=== PATIENT | male | born 1975 | race Caucasian/White ===

== ENCOUNTER 2022-04-23 17:52 | Observation (INO) | payer OTHER, SELFPAY ==
[2022-04-23] VITALS (23 sets, daily range): BP systolic 95–171; BP diastolic 59–104; PULSE 47–104; RESP 11–30; TEMP 36.4; O2SAT 92–100; BMI 36.6
--- NOTE | ~2022-04-23 | XR_ITS ---
XR chest 2V 04/23/2022 18:32 Indication: Left-sided chest pain Procedure: 2 view chest Comparison: No prior studies for comparison. Findings: Heart size normal. No focal air space disease, pulmonary edema, pleural effusion or suspect ed pneumothorax. There are multiple bilateral calcified nodules, consistent with chronic granulomatou s disease. Impression: 1: No acute cardiopulmonary disease. Reviewed, dictated and finalized at location A. Impression: 1: No acute cardiopulmonary disease.
--- NOTE | 2022-04-23 17:54 | ECG_ITS ---
Measurements Intervals Myton Rate: 92 P: 39 MO: 164 QRS: 54 QRSD: 111 T: 8 QT: 334 QTc: 415 Interpretive Statements SINUS RHYTHM WITH SINUS ARRHYTHMIA INTRAVENTRICULAR CONDUCTION DELAY DELAYED PRECORDIAL R/S TRANSITION BORDERLINE ST-T WAVE ABNORMALITY- INFERIOR LEADS BASELINE ARTIFACT- I, II, III, AVR BORDERLINE ECG NO PREVIOUS ECG AVAILABLE FOR COMPARISON Electronically Signed On 04-24-2022 8:01:27 CDT by Chauncey Green D.O.
[2022-04-23 18:09] LABS: Basophils Absolute Auto 0.1 K/mm3 (0.0-0.1); Basophils Percent Auto 1.2 % (0.2-1.2); Eosinophils Absolute Auto 0.3 K/mm3 (0-0.3); Eosinophils Percent Auto 2.9 % (0-4.4); Hematocrit 44.9 % (42.0-52.0); Hemoglobin 15.4 g/dL (14.0-18.0); Immature Granulocyte Absolute 0.06 K/mm3 (0.00-0.031); Immature Granulocyte Percent A 0.6 % (0-0.5); Lymphocytes Absolute Auto 2.45 K/mm3 (0.9-3.2); Lymphocytes Percent Auto 25.5 % (18.3-44.2); Mean Corpuscular HGB Conc 34.3 g/dl (32-36); Mean Corpuscular Hemoglobin 30.1 pg (26-34); Mean Corpuscular Volume 87.9 fl (80-100); Mean Platelet Volume 9.5 fl (7.4-10.4); Monocytes Absolute Auto 0.8 K/mm3 (0.1-0.6); Monocytes Percent Auto 7.9 % (2.6-8.5); Neutrophils Absolute Auto 5.9 K/mm3 (1.3-6.7); Neutrophils Percent Auto 61.9 % (45.5-73.1); Platelet Count Result 317 k/mm3 (150-375); Red Blood Count 5.11 M/mm3 (4.6-6.20); Red Cell Distribution Width 11.6 % (11.5-14.5); White Blood Count 9.6 K/mm3 (4.5-10.0)
[2022-04-23 18:19] LABS: Alanine Aminotransferase 54 U/L (6-50); Albumin Level 4.9 g/dL (3.5-5.1); Alkaline Phosphatase 81 U/L (38-126); Anion Gap 8 mmol/L (8-16); Aspartate Amino Transferase 43 U/L (17-59); Bilirubin,Total 0.7 mg/dL (0.2-1.3); Blood Urea Nitrogen 26 mg/dL (9-20); Calcium 9.8 mg/dL (8.4-10.2); Carbon Dioxide 24 mmol/L (22-30); Chloride 101 mmol/L (98-107); Estimated CRCL calculation 149 ml/min; Estimated Glomerular Filt Rate > 60; Glucose 95 mg/dL (65-110); Lipase 70 U/L (23-300); Potassium 4.1 mmol/L (3.4-5.0); Sodium 133 mmol/L (137-145)
[2022-04-23 18:20] LABS: Partial Thromboplastin Time 28.9 SECONDS (22.3-36.8); Prothrombin Time 12.8 Seconds (11.1-14.7)
[2022-04-23 18:31] LABS: Troponin I < 0.012 ng/mL (0.000-0.034)
[2022-04-23] MEDS: BELLADONNA ALK/PHENOB ELIX 10 ML, MAG HYDROX/ALUMINUM HYD/SIMETH 30 ML, LIDOCAINE HCL 2... PO (18:32)
--- NOTE | 2022-04-23 19:18 | ED.CHESTPAIN ---
HPI - Chest Pain General Chief Complaint: Chest Pain Stated Complaint: Chest pain Time Seen by Provider: 04/23/22 18:10 History of Present Illness HPI narrative: Patient is a 46-year-old male who presents ER with chest pain. Occurred around 1 PM. Began in the left mid chest/mid abdomen. This moved around his left chest wall into his left shoulder. No aggravating or alleviating factors that he is found. No association with eating or drinking. Its not associated with exertion or deep breaths with physical movement. It did begin an hour after eating but is unsure if related. No history of VA. Related Data Allergies Allergy/AdvReac Type Severity Reaction Status Date / Time No Known Allergies Allergy Verified 04/23/22 18:30 Review of Systems Review of Systems: All systems reviewed & are unremarkable except as noted in HPI and below Constitutional: Constitutional: Denies chills, Denies fatigue and Denies fever(s) ENT: Denies nasal congestion and Denies sore throat Cardiovascular: Cardiovascular: Reports chest pain, Denies rapid heart rate and Reports radiating jaw, neck or arm pain Respiratory: Respiratory: Denies cough and Denies dyspnea Gastrointestinal: Gastrointestinal: Reports abdominal pain, Denies diarrhea, Denies nausea and Denies vomiting PMFSH Past Medical History Medical History (Updated 04/23/22 @ 20:39 by Rosalio Russ MD) Amputee Hypertension Surgical History Surgical History (Updated 04/23/22 @ 19:23 by Rosalio Russ MD) H/O wrist surgery History of hip replacement Hx of BKA Family History Family History Mother Diabetes mellitus Hypertension Lymphoma Grandparent Hypertension Father Hypertension Social History Social History Smoking status: Never smoker Alcohol intake: never Substance use: never Living arrangements: with family Occupation/Education: occupation Additional occupation/education comments: [employer] Agree to blood products: Yes Exam Narrative: GENERAL: Well-appearing, well-nourished, and in no acute distress. HEAD: Normocephalic, atraumatic. EYES: PERRL and EOMI. ENT: Mucous membranes moist. CHEST: Clear to auscultation. No respiratory distress. HEART: Regular rate and rhythm. Normal peripheral pulses. ABDOMEN: Soft, nontender, nondistended. EXTREMITIES: Normal range of motion. No edema. SKIN: Warm, dry, no rash. NEURO: No focal deficits. Alert and oriented x3. PSYCH: Normal mood and affect. Course Course Emergency Course: Patient resting comfortably. Chest pain-free. Received GI cocktail which may have improved. Blood pressure 122/83. EKG without ischemia. Troponin negative. Heart score 1. Prior to discharge patient became bradycardic and hypotensive. Patient was not remanipulated by the nurses. His IV had not been read nor had he been poked. He is not having abdominal pain no chest pain. Vital signs normalized then he had recurrence of this moments later. After discussion with cardiology it is felt best to observe in the hospital. Vital Signs Vital signs: Vital Signs Pulse Rate 92 04/23/22 18:03 Respiratory Rate 20 04/23/22 18:03 Blood Pressure 171/104 H 04/23/22 18:03 Pulse Oximetry 98 04/23/22 18:03 Pulse Rate 83 04/23/22 20:32 Respiratory Rate 18 04/23/22 20:32 Blood Pressure 134/82 04/23/22 20:32 Pulse Oximetry 97 04/23/22 20:32 MDM - Chest Pain Lab Data 04/23/22 18:02 04/23/22 18:02 Labs: Lab Results 04/23/22 04/23/22 04/23/22 Range/Units 18:02 18:02 18:02 WBC 9.6 (4.5-10.0) K/mm3 RBC 5.11 (4.6-6.20) M/mm3 Hgb 15.4 (14.0-18.0) g/dL Hct 44.9 (42.0-52.0) % MCV 87.9 (80-100) fl MCH 30.1 (26-34) pg MCHC 34.3 (32-36) g/dl RDW 11.6 (11.5-14.5) % Plt Count 317 (150-375
[2022-04-23 21:15] LABS: Troponin I < 0.012 ng/mL (0.000-0.034)
--- NOTE | 2022-04-23 21:58 | ADMGEN ---
This patient, Parish Grossman, was admitted to 3 Med Surg Room 316-02. Patient/family oriented to hospital policies and general routines including ID bracelet, bed and alarms, visiting hours, pain management, procedures, bathroom and other care routines, personal items, smoking policy, room service/diet, and visiting hours. Information on how to activate the Rapid Response Team has been discussed. Patient/Family are encouraged to report perceived risks to care and to ask questions if they do not understand what they are told or what they should do.
[2022-04-24] VITALS: PULSE 78
[2022-04-24 00:34] LABS: Troponin I < 0.012 ng/mL (0.000-0.034)
[2022-04-24 04:00] VITALS: PULSE 64
[2022-04-24 05:04] VITALS: BP 123/80; PULSE 83; RESP 16; TEMP 36.1; O2SAT 99
--- NOTE | 2022-04-24 06:00 | ECHO_ITS ---
Patient Info Name: Parish Grossman Age: 46 years : 1975 Gender: Male Ht: 75 in Wt: 293 lbs BSA: 2.70 m2 HR: 70 bpm BP: 123 / 80 mmHg Heart Rhythm: Sinus Rhythm Technical Quality: Fair Exam Date: 04/24/2022 7:19 AM Exam Location: [facility] Patient Status: Inpatient Admit Date: 04/23/2022 Staff Ordering Physician: Rosalio Russ MD Orthopedic Tech: Liya Strong RDCS Attending Provider: Laura Zimmerman MD Referring Physician: Jeb BLACKBURN; Exam Type: CA echo dop color flow w con Study Info Indications R00.1 - Bradycardia, unspecified Complete two-dimensional, color flow and Doppler transthoracic echocardiogram is performed with contrast to opacify the left ventricle and to improve the deliniation of the left ventricle endocardial borders. Contrast/Agitated Saline Contrast/Ag. Saline: Definity Amount: 3.00 ml Summary 1. Normal left ventricular size and thickness with good contractility of all segments. Ejection fraction is 62%. Normal diastolic function. 2. No significant valve disease. 3. Small caliber inferior vena cava. 4. Normal sinus rhythm. Left Ventricle Left ventricular chamber dimension is normal. Left ventricular systolic function is normal, estimated at 60-65%. There is no increased left ventricular wall thickness. Left ventricular septal wall motion is normal. The left ventricular diastolic function is normal. Right Ventricle Right ventricular chamber dimension is normal. Right ventricular systolic function is normal. Left Atria Left atrial chamber dimension is normal. Right Atria Right atrial chamber dimension is normal. Aortic Valve The aortic valve is trileaflet. There is no aortic valve sclerosis. There is no aortic valve stenosis. There is no aortic valve regurgitation. Pulmonic Valve The pulmonic valve is normal. There is no pulmonic valve stenosis. There is trace pulmonic regurgitation. Mitral Valve The mitral valve has normal leaflets. There is no mitral valve stenosis. There is no mitral valve regurgitation. Tricuspid Valve The tricuspid valve leaflets are normal. There is no significant tricuspid valve stenosis. There is trace tricuspid valve regurgitation. No pulmonary hypertension, estimated pulmonary arterial systolic pressure is Empty. Pericardium/Pleural The pericardium appears normal. There is no pericardial effusion. Inferior Vena Cava Normal inferior vena cava with >50% collapse upon inspiration consistent with Empty right atrial pressure, Empty. Aorta The aortic root size at the sinus of Valsalva is normal. The prox ascending aorta size is normal. Left Ventricular Outflow Tract Name Value Normal LVOT 2D LVOT Diameter 2.44 cm LVOT Doppler LVOT Peak Gradient 4 mmHg LVOT Mean Gradient 2 mmHg LVOT VTI 25.76 cm LVOT VTI/AV VTI Ratio 1.10 LVOT Stroke Volume 120.66 ml LVOT CO
[2022-04-24 08:00] VITALS: PULSE 80
[2022-04-24] MEDS: PERFLUTREN LIPID MICROSPHERES 1.5 ML VIAL DILUTED TO 10 ML TOTAL VOLUME IV PUSH (08:00)
--- NOTE | 2022-04-24 10:42 | PM.SD2 ---
Same Day Admit/Disch: HPI History of Present Illness Chief complaint: Bradycardia, Near Syncope Narrative: Parish Grossman is a 46 year old male who came to the emergency room with atypical chest pain but it has stayed overnight for observation because of transient bradycardia and hypotension. Mr. Parish Grossman is a 46-year-old male with hypertension and mildly elevated cholesterol who had a couple of episodes of chest discomfort last week, like a knuckle being pushed into my chest for a couple of seconds with no aggravating or relieving factors. Yesterday he felt like his whole stomach was on fire, and then the discomfort came up to the lower sternal area and then around to the left scapular area. This was described as a weird dull pain.This happened a couple hours after eating an early lunch. There is no associated symptoms. No aggravating or relieving factors. He came to the emergency room was given GI cocktail with relief. However prior to discharge, when getting up , he felt flushed and sweaty, had a decline in his blood pressure from 170 down to 120-130 MmHg, and later 100 mmHg, and bradycardia with heart rate in the 40s. After lying down he felt better, but again on standing up he had the same problem with heart rate dropping to the 40s and blood pressure 95 mmHg. he later was given some food and admitted overnight for observation. He is had an episode of feeling weird when they were digging around for Ablood test around midnight and I see that, on his monitor, his heart rate declined to the mid to upper 50s about that time. Otherwise on his monitor he has remained in sinus rhythm and he has been up, back and forth to the bathroom, with no particular problems. Blood pressure has been stable this morning, The patient otherwise has been in good health. He denies any prior episodes of dizziness or syncope. He denies any other troubles with chest discomfort or exertional symptoms. No family history of heart disease. No history of any drug use Or smoking. PMFSH Past Medical History Medical History Amputee Hypertension Surgical History Surgical History H/O wrist surgery History of hip replacement Hx of BKA Family History Family History Mother Diabetes mellitus Hypertension Lymphoma Grandparent Hypertension Father Hypertension Social History Social History (Updated 04/24/22 @ 10:49 by Laura Zimmerman MD) Social History: patient is . 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 Smoking status: Never smoker Second hand tobacco smoke exposure: No Alcohol intake: current Drinks per week: 6 Substance use: never Lack of Transportation: No Lack of Food: Never True Current Housing: I Have Housing Concerned About Future Housing: No Difficulty Paying Gas/Electric Bills: No Difficulty Paying for Meds: No Currently Unemployed: No Education: Bachelor's Degree Difficulty w/ Childcare or Family Care: No Living arrangements: with family Occupation/Education: occupation Additional occupation/education comments: [employer] Spiritual care concerns: No Agree to blood products: Yes Same Day Admit/Disch: Med Pre-admit Medications Home Medications Medication Instructions Recorded Confirmed Type lisinopril 10 1 tablet PO DAILY #90 tabs 03/31/22 04/23/22 Rx mg-hydrochlorothiazide 12.5 mg tablet Exam Const: General: cooperative, healthy appearing and comfortable; No confusion Orientation/consciousness: oriented to person, patient oriented x3 and No confusion Other: Very pleasant friendly young man, obese, at the bedside, no distress CRAIG
== END 2022-04-24 11:25 | disposition home or self-care (01) ==
LOC: ANHED 20:39 → ANH3MEDSUR 21:28
PROVIDERS: Emergency Medicine; Admitting Provider Internal Medicine Cardiovascular Disease; Emergency Provider Emergency Medicine; Visit Provider Internal Medicine Cardiovascular Disease
DX: R00.1 Bradycardia, unspecified (principal); I95.9 Hypotension, unspecified; E78.00 Pure hypercholesterolemia, unspecified; R07.89 Other chest pain; Z89.611 Acquired absence of right leg above knee; I10 Essential (primary) hypertension; R55 Syncope and collapse; Z82.49 Family history of ischemic heart disease and other diseases of the circulatory system; F10.90 Alcohol use, unspecified, uncomplicated
CPT/HCPCS: 36415; 71046; 80053; 83690; 84484; 85025; 85610; 85730; 93005; 99285; A9270; C8929; G0378; Q9957